=== PATIENT | female | born 1975 | race Caucasian/White ===

== ENCOUNTER 2016-12-22 12:00 | Emergency (ER) | payer OTHER ==
[~2016-12-22] VITALS: Ht 172.7 cm; Wt 117.9 kg
[~2016-12-22 12:00] MED LIST: MIRENA1 EACH IY; MULTI-VITAMIN1 EACH PO; OMEPRAZOLE20 M1 PO; ONDANSETRON ODT8 MG PO; XANAX0.5 MG PO
[2016-12-22] MEDS ORDERED: ZOFRAN ODT4 MG PO (13:34)
[2016-12-22] MEDS ORDERED: BENTYL10 MG PO (13:34)
[2017-01-25] MEDS ORDERED: IBUPROFEN600 MG PO (16:21)
[2017-01-25] MEDS ORDERED: ACETAMINOPHEN500 M4 PO (16:22)
== END 2016-12-22 14:10 | disposition home or self-care (01) ==
LOC: ED 12:00
DX: R10.13 Epigastric pain (principal); F41.9 Anxiety disorder, unspecified; F17.200 Nicotine dependence, unspecified, uncomplicated; Z88.8 Allergy status to other drugs, medicaments and biological substances; Z91.012 Allergy to eggs; Z79.899 Other long term (current) drug therapy
CPT/HCPCS: 74022; 80053; 81001; 82150; 83690; 84703; 85025; 96361; 96374; 96375; 99283; J2405; J3010; J7030

== ENCOUNTER 2018-12-09 09:54 | Emergency (ER) | payer OTHER ==
[~2018-12-09] VITALS: Ht 175.3 cm; Wt 132.0 kg
[~2018-12-09 09:54] MED LIST changes: +ACETAMINOPHEN500 M4 PO; +BENTYL10 MG PO; +IBUPROFEN600 MG PO; +IMITREX6 MG/0.5 M SUB-Q; +ZOFRAN ODT4 MG PO
--- OUTSIDE RECORDS SUMMARY | 2018-12-09 09:58 | XMS ---
PreManage Notification: YANELY KINSEY Security Machinist Outside Events No recent Security Events currently on file CRITERIA MET - [facility] - [facility] KIP CHOI Physician Cable Ferry Operator 08/14/2018-Current PHONE: Unknown [facility] has no Care Guidelines for this patient. Care History Medical/Surgical 08/14/2018 [facility] \T\middot;\T\nbsp; PATIENT IS A [employer] MEMBER. \T\middot;\T\nbsp; PLEASE REFER PATIENT TO [facility] FOR NON EMERGENT MEDICAL NEEDS. \T\middot;\ T\nbsp; [facility] CAN SEE PATIENTS SAME DAY FOR APTS IF PATIENT CALLS FIRST THING IN THE MORNING. E.D. VISIT COUNT (12 MO.) 2 [facility] TOTAL 2 NOTE: Visits indicate total known visits. ED/UCC VISIT TRACKING (12 MO.) 12/09/2018 09:55 [facility] [place] [place] TYPE: Emergency COMPLAINT: - HEADACHE 08/12/2018 23:29 [facility]SA [place] TYPE: Emergency COMPLAINT: - HEADACHE DIAGNOSES: - Personal history of nicotine dependence - Allergy to eggs - Anxiety disorder, unspecified - Migraine, unspecified, not intractable, without status migrainosus - Other care home (current) drug therapy - Headache - Allergy status to other drugs, medicaments and biological substances status - Allergy status to narcotic agent status INPATIENT VISIT TRACKING (12 MO.) No inpatient visits to display in this time frame [email or web address]
[2018-12-09] MEDS ORDERED: ZOFRAN4 MG SL (11:31)
[2018-12-09] MEDS ORDERED: IMITREX6 MG/0.5 M SUB-Q (11:31)
== END 2018-12-09 11:42 | disposition home or self-care (01) ==
LOC: ED 09:54
DX: G43.909 Migraine, unspecified, not intractable, without status migrainosus (principal); F41.9 Anxiety disorder, unspecified; Z87.891 Personal history of nicotine dependence; Z90.49 Acquired absence of other specified parts of digestive tract; Z91.018 Allergy to other foods; Z88.8 Allergy status to other drugs, medicaments and biological substances
CPT/HCPCS: 96361; 96374; 96375; 99283-25; J1200; J1885; J2765; J7030

== ENCOUNTER 2019-07-23 20:06 | Emergency (ER) | payer BC, OTHER ==
[~2019-07-23] VITALS: Ht 175.3 cm; Wt 132.4 kg
[~2019-07-23 20:06] MED LIST changes: +ZOFRAN4 MG SL
--- OUTSIDE RECORDS SUMMARY | 2019-07-23 20:10 | XMS ---
PreManage Notification: YANELY KINSEY Security Lead Level Designer Events No recent Security Events currently on file CRITERIA MET - [facility] - [facility] KIP CHOI Physician Film Inspector 08/14/2018-Current PHONE: Unknown [facility] has no Care Guidelines for this patient. Care History Medical/Surgical 08/14/2018 [facility] \T\middot;\T\nbsp; PATIENT IS A [employer] MEMBER. \T\middot;\T\nbsp; PLEASE REFER PATIENT TO [facility] FOR NON EMERGENT MEDICAL NEEDS. \T\middot;\ T\nbsp; [facility] CAN SEE PATIENTS SAME DAY FOR APTS IF PATIENT CALLS FIRST THING IN THE MORNING. E.D. VISIT COUNT (12 MO[address] 3 [facility] TOTAL 3 NOTE: Visits indicate total known visits. ED/UCC VISIT TRACKING (12 MO.) 07/23/2019 20:07 [facility] [place] TYPE: Emergency COMPLAINT: - HEAD PAIN 12/09/2018 09:55 [facility]SA [place] TYPE: Emergency COMPLAINT: - HEADACHE DIAGNOSES: - Allergy to other foods - Migraine, unsp, not intractable, without status migrainosus - Anxiety disorder, unspecified - Personal history of nicotine dependence - Allergy status to oth drug/meds/biol subst status - Acquired absence of other specified parts of digestive tract 08/12/2018 23:[address] [facility] [place] TYPE: Emergency COMPLAINT: - HEADACHE DIAGNOSES: - Personal history of nicotine dependence - Allergy to eggs - Anxiety disorder, unspecified - Migraine, unsp, not intractable, without status migrainosus - Other manager terminal (current) drug therapy - Headache - Allergy status to oth drug/meds/biol subst status - Allergy status to narcotic agent status INPATIENT VISIT TRACKING (12 MO.) No inpatient visits to display in this time frame [email or web address]
[2019-07-23] MEDS ORDERED: BUPRENORPHINE HC2 MG SL (22:20)
[2019-07-23] MEDS ORDERED: LEVOTHYROXINE25 MCG PO (22:20)
== END 2019-07-24 00:57 | disposition home or self-care (01) ==
LOC: ED 20:06
DX: G43.909 Migraine, unspecified, not intractable, without status migrainosus (principal); F41.9 Anxiety disorder, unspecified; Z88.8 Allergy status to other drugs, medicaments and biological substances; Z91.012 Allergy to eggs; Z79.899 Other long term (current) drug therapy
CPT/HCPCS: 96361; 96374; 96375; 99283-25; J1200; J1885; J2765; J7030

== ENCOUNTER 2020-03-02 07:52 | Emergency (ER) | payer BC, OTHER ==
[~2020-03-02] VITALS: Ht 175.3 cm; Wt 132.4 kg
[~2020-03-02 07:52] MED LIST changes: +BUPRENORPHINE HC2 MG SL; +LEVOTHYROXINE25 MCG PO
--- OUTSIDE RECORDS SUMMARY | 2020-03-02 07:54 | XMS ---
PreManage Notification: YANELY KINSEY Security Manager Star Events No recent Security Events currently on file CRITERIA MET - [facility] - Has Care Guidelines CARE PROVIDERS DEIRDRE JAY Internal Medicine Current PHONE: [phone] KIP CHOI 08/14/2018-Current PHONE: Unknown Name [facility] 07/24/2019-Current PHONE: [phone] [facility] has no Care Guidelines for this patient. Care History Medical/Surgical 08/14/2018 [facility] \T\middot;\T\nbsp; PATIENT- [place] ELIGIBLE \T\middot;\T\nbsp; PLEASE REFER PATIENT TO [facility] FOR NON EMERGENT MEDICAL NEEDS. \T\middot;\ T\nbsp; [facility] CAN SEE PATIENTS SAME DAY FOR APTS IF PATIENT CALLS FIRST THING IN THE MORNING. [place] VISIT COUNT (12 MO.) 2 MELISSA Robert TOTAL 2 NOTE: Visits indicate total known visits. ED/UCC VISIT TRACKING (12 MO.) 03/02/2020 07:52 [facility]SA [place] TYPE: Emergency COMPLAINT: - HEADACHE 07/23/2019 20:[address] 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
== END 2020-03-02 10:10 | disposition home or self-care (01) ==
LOC: ED 07:52
DX: G43.909 Migraine, unspecified, not intractable, without status migrainosus (principal); F41.9 Anxiety disorder, unspecified; Z88.8 Allergy status to other drugs, medicaments and biological substances; Z91.012 Allergy to eggs; Z79.899 Other long term (current) drug therapy
CPT/HCPCS: 96361; 96374; 96375; 99283-25; J1200; J1885; J2765; J3030; J7030

== ENCOUNTER 2020-05-18 16:21 | Emergency (ER) | payer BC, OTHER ==
[~2020-05-18] VITALS: Ht 175.3 cm; Wt 136.1 kg
--- OUTSIDE RECORDS SUMMARY | 2020-05-18 16:24 | XMS ---
PreManage Notification: YANELY KINSEY Security Trademark Paralegal Events No recent Security Events currently on file CRITERIA MET - [facility] - Has Care Guidelines - PDMP CARE PROVIDERS DEIRDRE JAY Internal Medicine Current PHONE: [phone] KIP CHOI 08/14/2018-Current PHONE: Unknown Name [facility] 07/24/2019-Current PHONE: [phone] [facility] has no Care Guidelines for this patient. Care History Medical/Surgical 08/14/2018 [facility] \T\middot;\T\nbsp; PATIENT- [place] [facility]IG[facility] \T\middot;\T\nbsp; PLEASE REFER PATIENT TO [facility] FOR NON EMERGENT MEDICAL NEEDS. \T\middot;\ T\nbsp; [facility] CAN SEE PATIENTS SAME DAY FOR APTS IF PATIENT CALLS FIRST THING IN THE MORNING. [place] VISIT COUNT (12 MO.) 3 MELISSA Robert TOTAL 3 NOTE: Visits indicate total known visits. 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 - Headache - Anxiety disorder, unspecified - Migraine, unspecified, not intractable, without status migrainosus - Allergy status to other drugs, medicaments and biological substances 07/23/2019 20:07 [facility] [place] TYPE: Emergency COMPLAINT: - HEAD PAIN DIAGNOSES: - Anxiety disorder, unspecified - Allergy status to other drugs, medicaments and biological substances - 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
[2020-05-18] MEDS ORDERED: BUSPIRONE HCL15 MG PO (16:37)
[2020-05-18] MEDS ORDERED: SUMATRIPTA6 MG/0.51 SUB-Q (16:37)
[2020-05-18] MEDS ORDERED: REGLAN10 MG PO (18:16)
[2020-05-18] MEDS ORDERED: ONDANSETRON ODT8 MG PO (18:16)
== END 2020-05-18 18:26 | disposition home or self-care (01) ==
LOC: ED 16:21
DX: G43.909 Migraine, unspecified, not intractable, without status migrainosus (principal); Z87.891 Personal history of nicotine dependence; Z88.8 Allergy status to other drugs, medicaments and biological substances; Z91.012 Allergy to eggs; Z79.899 Other long term (current) drug therapy
CPT/HCPCS: 96374; 96375; 99283-25; J1200; J1885; J2405; J2765; J7030

== ENCOUNTER 2020-05-20 06:29 | Emergency (ER) | payer BC, OTHER ==
[~2020-05-20] VITALS: Ht 175.3 cm; Wt 138.2 kg
[~2020-05-20 06:29] MED LIST changes: +BUSPIRONE HCL15 MG PO; +REGLAN10 MG PO; +SUMATRIPTA6 MG/0.51 SUB-Q
--- OUTSIDE RECORDS SUMMARY | 2020-05-20 06:32 | XMS ---
PreManage Notification: YANELY KINSEY Security Client Architect Events No recent Security Events currently on file CRITERIA MET - [facility] - Has Care Guidelines - [facility] - 2 Visits in 30 Days CARE PROVIDERS DEIRDRE JAY Internal Medicine Current PHONE: [phone] KIP CHOI 08/14/2018-Current PHONE: Unknown Name [facility]/Center 07/24/2019-Current PHONE: [phone] [facility] has no Care Guidelines for this patient. Care History Medical/Surgical 08/14/2018 [facility] \T\middot;\T\nbsp; PATIENT- [place] [facility]IG[facility] \T\middot;\T\nbsp; PLEASE REFER PATIENT TO [facility] FOR NON EMERGENT MEDICAL NEEDS. \T\middot;\ T\nbsp; [facility] CAN SEE PATIENTS SAME DAY FOR APTS IF PATIENT CALLS FIRST THING IN THE MORNING. E.D. VISIT COUNT (12 MO.) 4 MELISSA Robert TOTAL 4 NOTE: Visits indicate total known visits. ED/UCC VISIT TRACKING (12 MO.) 05/20/2020 06:29 [facility] [place] TYPE: Emergency COMPLAINT: - HEADACHE 05/18/2020 16:[address] [place] TYPE: Emergency COMPLAINT: - HEADACHE 03/02/2020 07:52 [facility] [place] [facility] [place] TYPE: Emergency COMPLAINT: - HEADACHE DIAGNOSES: - Allergy to eggs - Other [place] [facility] (current[facility] drug therapy - Headache - Anxiety disorder, unspecified - Migraine, unspecified, not intractable, without status migrainosus - Allergy status to other drugs, medicaments and biological substances 07/23/2019 20:07 [facility] [place] [facility] [place] TYPE: Emergency COMPLAINT: - HEAD PAIN DIAGNOSES: - Anxiety disorder, unspecified - Allergy status to other drugs, medicaments and biological substances - Other [place] [facility] (current) drug therapy - Headache - Allergy to eggs - Migraine, unspecified, not intractable, without status migrainosus INPATIENT VISIT TRACKING (12 MO.) No inpatient visits to display in this time frame [id number]
== END 2020-05-20 10:17 | disposition home or self-care (01) ==
LOC: ED 06:29
DX: G43.909 Migraine, unspecified, not intractable, without status migrainosus (principal); Z87.891 Personal history of nicotine dependence; Z88.8 Allergy status to other drugs, medicaments and biological substances; Z91.012 Allergy to eggs; Z79.899 Other long term (current) drug therapy
CPT/HCPCS: 96374; 96375; 96376; 99283-25; J1100; J1200; J1885; J2405; J2765; J7030

== ENCOUNTER 2020-06-22 16:45 | Emergency (ER) | payer BC, OTHER ==
[~2020-06-22] VITALS: Ht 175.3 cm; Wt 137.9 kg
--- OUTSIDE RECORDS SUMMARY | 2020-06-22 16:48 | XMS ---
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 Care History Medical/Surgical 08/14/2018 [facility] \T\middot;\T\nbsp; PATIENT- [place] [facility]IGIBLE \T\middot;\T\nbsp; PLEASE REFER PATIENT TO [facility] FOR NON EMERGENT MEDICAL NEEDS. \T\middot;\ T\nbsp; [facility] CAN SEE PATIENTS SAME DAY FOR APTS IF PATIENT CALLS FIRST THING IN THE MORNING. [place] VISIT COUNT (12 MO.) 5 MELISSA Robert TOTAL 5 NOTE: Visits indicate total known visits. ED/UCC VISIT TRACKING (12 MO.) 06/22/2020 16:45 [facility]SA [place] TYPE: Emergency COMPLAINT: - POSSIBLE MIGRAINE 05/20/2020 06:29 [facility] [place] TYPE: Emergency COMPLAINT: - HEADACHE DIAGNOSES: - Headache, unspecified - Allergy status to other drugs, medicaments and biological substances - Migraine, unspecified, not intractable, without status migrainosus - Allergy status to other drugs, medicaments and biological substances - Headache, unspecified - Allergy to eggs - Personal history of nicotine dependence - Other long term care pharmacist (current) drug therapy 05/18/2020 16:22 [facility]ELISSA [place] TYPE: Emergency COMPLAINT: - HEADACHE DIAGNOSES: - Allergy status to other drugs, medicaments and biological substances - Headache, unspecified - Migraine, unspecified, not intractable, without status migrainosus - Personal history of nicotine dependence - Allergy status to other drugs, medicaments and biological substances - Headache, unspecified - Other long term care pharmacist (current) drug therapy - Allergy to eggs 03/02/2020 07:[facility] [place] TYPE: Emergency COMPLAINT: - HEADACHE DIAGNOSES: - Allergy to eggs - Other half-way (current) drug therapy - Headache - Anxiety disorder, unspecified - Migraine, unspecified, not intractable, without status migrainosus - Allergy status to other drugs, medicaments and biological substances 07/23/2019 20:07 MELISSA [place] TYPE: Emergency COMPLAINT: - HEAD PAIN DIAGNOSES: - Anxiety disorder, unspecified - Allergy status to other drugs, medicaments and biological substances - Other long term care pharmacist (current) drug therapy - Headache - Allergy to eggs - Migraine, unspecified, not intractable, without status migrainosus INPATIENT VISIT TRACKING (12 MO.) No inpatient visits to display in this time frame [email or web address]
== END 2020-06-22 19:52 | disposition home or self-care (01) ==
LOC: ED 16:45
DX: R51.9 Headache, unspecified (principal); Z87.891 Personal history of nicotine dependence; Z88.8 Allergy status to other drugs, medicaments and biological substances; Z91.012 Allergy to eggs; Z79.899 Other long term (current) drug therapy
CPT/HCPCS: 96374; 96375; 99283-25; J1100; J1200; J1885; J2405; J2550; J7030

== ENCOUNTER 2021-10-16 08:32 | Emergency (ER) | payer BC, OTHER ==
[~2021-10-16] VITALS: Ht 175.3 cm; Wt 137.9 kg
--- OUTSIDE RECORDS SUMMARY | 2021-10-16 08:34 | XMS ---
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 Care History Medical/Surgical 06/23/2020 [facility] - PATIENT CURRENTLY ON A PAIN CONTRACT WITH DR JAY- PLEASE REVIEW PDMP. 08/14/2018 [facility] \T\middot;\T\nbsp; PATIENT- [facility]IG[facility] \T\middot;\T\nbsp; PLEASE REFER PATIENT TO [facility] FOR NON EMERGENT MEDICAL NEEDS. \T\middot;\ T\nbsp; [facility] CAN SEE PATIENTS SAME DAY FOR APTS IF PATIENT CALLS FIRST THING IN THE MORNING. E.D. VISIT COUNT (12 MO.) 1 MELISSA Robert TOTAL 1 NOTE: Visits indicate total known visits. ED/UCC VISIT TRACKING (12 MO.) 10/16/2021 08:33 MELISSA [place] TYPE: Emergency COMPLAINT: - CHEST PAIN INPATIENT VISIT TRACKING (12 MO.) No inpatient visits to display in this time frame [email or web address]
[2021-10-16] MEDS ORDERED: OXCARBAZEPINE150 MG PO (08:54)
--- NOTE | 2021-10-16 15:35 | EKG ---
[facility] [address] [place] [address] Signed Normal sinus rhythm Normal ECG No previous ECGs available Confirmed by JIAN CORTES MD ([id number]) on 10/16/2021 3:35:06 PM Electronically Signed By: JIAN CORTES MD 10/16/21 1535 PATIENT NAME: YANELY KINSEY SON Electrocardiogram DATE OF : 71 PHYSICIAN: JIAN CORTES MD REPORT #: [id number] REPORT IS CONFIDENTIAL AND NOT TO BE RELEASED WITHOUT AUTHORIZATION
--- NOTE | 2021-10-16 15:35 | EKG ---
[facility] [address] [place] [address] Signed Normal sinus rhythm Normal ECG No previous ECGs available Confirmed by JIAN CORTES MD ([id number]) on 10/16/2021 3:35:11 PM Electronically Signed By: JIAN CORTES MD 10/16/21 1535 PATIENT NAME: YANELY KINSEY SON Electrocardiogram DATE OF : 71 PHYSICIAN: JIAN CORTES MD REPORT #: [id number] REPORT IS CONFIDENTIAL AND NOT TO BE RELEASED WITHOUT AUTHORIZATION
== END 2021-10-16 13:35 | disposition short-term general hospital (02) ==
LOC: ED 08:32
DX: I21.4 Non-ST elevation (NSTEMI) myocardial infarction (principal); Z87.891 Personal history of nicotine dependence; Z88.8 Allergy status to other drugs, medicaments and biological substances; Z91.012 Allergy to eggs
CPT/HCPCS: 36415; 71045; 80053; 84484; 85025; 93005; 93010; 96374; 99285-25; A9270; J1644

== ENCOUNTER 2021-10-22 13:33 | Emergency (ER) | payer BC, OTHER ==
[~2021-10-22] VITALS: Ht 175.3 cm; Wt 137.9 kg
[~2021-10-22 13:33] MED LIST changes: +OXCARBAZEPINE150 MG PO
--- OUTSIDE RECORDS SUMMARY | 2021-10-22 13:36 | XMS ---
PreManage Notification: YANELY KINSEY Security Production Expediter Events No recent Security Events currently on file CRITERIA MET - [facility] - 2 Visits in 30 Days - PDMP CARE PROVIDERS KIP CHOI Physician Civil Engineering Professor 08/14/2018-[facility] PHONE: Unknown [facility] 07/24/2019- PHONE: [phone] [facility] has no Care Guidelines for this patient. Care History Medical/Surgical 06/23/2020 [facility] - PATIENT CURRENTLY ON A PAIN CONTRACT WITH DR JAY- PLEASE REVIEW PDMP. 08/14/2018 [facility] \T\middot;\T\nbsp; PATIENT- [facility] ELIGIBLE \T\middot;\T\nbsp; PLEASE REFER PATIENT TO [facility] FOR NON EMERGENT MEDICAL NEEDS. \T\middot;\ T\nbsp; [facility] CAN SEE PATIENTS SAME DAY FOR APTS IF PATIENT CALLS FIRST THING IN THE MORNING. E.D. VISIT COUNT (12 MO.) [address] [facility] TOTAL 2 NOTE: Visits indicate total known visits. ED/UCC VISIT TRACKING (12 MO.) 10/22/2021 13:34 [facility]SA [place] TYPE: Emergency COMPLAINT: - CHEST PAIN, SOB, HEAVY CHEST 10/16/2021 08:eTa [place] TYPE: Emergency COMPLAINT: - CHEST PAIN DIAGNOSES: - Personal history of nicotine dependence - Chest pain, unspecified - Non-ST elevation (NSTEMI) myocardial infarction - Allergy status to other drugs, medicaments and biological substances - Allergy to eggs INPATIENT VISIT TRACKING (12 MO.) [facility] DIAGNOSES: - Hypothyroidism, unspecified - Non-ST elevation (NSTEMI) myocardial infarction - Morbid (severe) obesity due to excess calories - Tension-type headache, unspecified, not intractable - NSTEMI - Palpitations [email or web address]
[2021-10-22] MEDS ORDERED: METOPROLOL TART25 MG PO (13:52)
[2021-10-22] MEDS ORDERED: ATORVASTATIN CA80 MG PO (13:52)
[2021-10-22] MEDS ORDERED: NITROGLYCERIN0.4 MG SL (13:54)
[2021-10-22] MEDS ORDERED: TERBINAFINE HC250 MG PO (13:55)
--- NOTE | 2021-10-25 08:55 | EKG ---
[facility] [address] [place], [place] [address] Signed Sinus bradycardia Otherwise normal ECG When compared with ECG of 16-OCT-2021 09:32, QT has shortened Confirmed by JIAN CORTES MD ([id number]) on 10/25/2021 8:55:15 AM Electronically Signed By: JIAN CORTES MD 10/25/21 0855 PATIENT NAME: YANELY KINSEY SON Electrocardiogram DATE OF : 71 PHYSICIAN: JIAN CORTES MD REPORT #: [id number] REPORT IS CONFIDENTIAL AND NOT TO BE RELEASED WITHOUT AUTHORIZATION
== END 2021-10-22 18:25 | disposition short-term general hospital (02) ==
LOC: ED 13:33
DX: I21.4 Non-ST elevation (NSTEMI) myocardial infarction (principal); Z87.891 Personal history of nicotine dependence; G43.909 Migraine, unspecified, not intractable, without status migrainosus; F41.9 Anxiety disorder, unspecified; Z88.8 Allergy status to other drugs, medicaments and biological substances; Z91.012 Allergy to eggs; Z79.899 Other long term (current) drug therapy; Z20.822 Contact with and (suspected) exposure to COVID-19
CPT/HCPCS: 36415; 71045; 80053; 83735; 84484; 85025; 87502; 93005; 93010; 96365; 96366; 99285-25; C9803; J1644; U0003

== ENCOUNTER 2024-06-21 22:36 | Emergency (ER) | payer BC, OTHER ==
[~2024-06-21] VITALS: Ht 175.3 cm; Wt 153.8 kg
[~2024-06-21 22:36] MED LIST changes: +ATORVASTATIN CA80 MG PO; +METOPROLOL TART25 MG PO; +NITROGLYCERIN0.4 MG SL; +TERBINAFINE HC250 MG PO
[2024-06-21] MEDS ORDERED: ASPIRIN 81 MG CHEW PO ONE (22:45)
[2024-06-21] MEDS ORDERED: NITROGLYCERIN 0.4 MG SUBL SL PRN (22:45)
[2024-06-21] MEDS ORDERED: FAMOTIDINE 20 MG/ 2 ML VIAL IV ONE (22:45)
[2024-06-21 22:50] LABS: HEMOGLOBIN 14.5 g/dL (12.0-18.0)
[2024-06-21 22:52] LABS: BASOPHILS 0.9 % (0-2); EOSINOPHILS 1.2 % (0-6); LYMPHOCYTES 36.5 % (24-44); MCH 29.8 (27-36); MCHC 33.8 g/dl (30-36); MCV 88.4 fl (81-99); MONOCYTES 6.8 % (0-12); NEUTROPHILS 54.6 % (39-80); PLATELET COUNT 308 K/uL (140-440); RBC 4.87 M/ul (4.3-5.7); RDW 13.5 (10.5-15.0)
[2024-06-21 23:09] LABS: ALBUMIN 3.7 g/dL (3.4-5.0); ALBUMIN/GLOBULIN RATIO 0.9 (1.1-2.4); BILIRUBIN, TOTAL 1.1 ng/dL (0.2-1.0); BUN/CREATININE RATIO 15.66 (6.0-28.6); CALCIUM 8.7 mg/dL (8.5-10.1); CREATININE, SERUM 0.83 mg/dL (0.55-1.02); PROTEIN, TOTAL 7.8 g/dL (6.4-8.2)
[2024-06-21] MEDS ORDERED: ACETAMINOPHEN 500 MG TAB PO ONE (23:15)
[2024-06-21 23:40] LABS: CHOLESTEROL/HDL RATIO 3.7
[2024-06-21] MEDS ORDERED: KETOROLAC TROMETHAMINE 30 MG/ML VIAL IV ONE (23:45)
[2024-06-22 00:56] VITALS: BP 167/75
--- NOTE | 2024-06-22 10:20 | EKG ---
[facility] [address] [facility] [place] [address] Signed Normal sinus rhythm Normal ECG When compared with ECG of 22-OCT-2021 13:38, No significant change was found Confirmed by Brent Murillo DO ([id number]) on 06/22/2024 10:20:24 AM Electronically Signed By: BRENT MURILLO DO 06/22/24 1020 PATIENT NAME: BLUYANELY PETTIT SON Electrocardiogram DATE OF : 71 PHYSICIAN: BRENT MURILLO DO REPORT #: [id number] REPORT IS CONFIDENTIAL AND NOT TO BE RELEASED WITHOUT AUTHORIZATION
== END 2024-06-22 00:57 | disposition home or self-care (01) ==
LOC: ED 22:36
PROVIDERS: Internal Medicine
DX: R07.89 Other chest pain (principal); Z87.891 Personal history of nicotine dependence; Z88.8 Allergy status to other drugs, medicaments and biological substances; Z88.1 Allergy status to other antibiotic agents; Z91.012 Allergy to eggs; Z79.899 Other long term (current) drug therapy; Z79.890 Hormone replacement therapy
CPT/HCPCS: 36415; 71045; 80053; 80061; 80307; 83735; 84484; 84703; 85025; 85379; 93005; 93010; 96374; 96375; 99285-25; A9270; J1885